=== PATIENT | male | born 2000 | race Hispanic/Latino ===

== ENCOUNTER 2020-11-11 11:41 | Emergency (ER) | payer SELFPAY ==
[2020-11-11 12:03] VITALS: BP 114/59
[2020-11-11] MEDS ORDERED: DIPHtheria,PERTUSSIS(ACELL),TETANUS VACCINE/PF 0.5 ML VIAL IM ONE (12:08)
[2020-11-11] MEDS ORDERED: RABIES IMMUNE GLOBULIN P/F 300 UNIT/ML INJ 5 ML IM ONE (12:11)
[2020-11-11] MEDS ORDERED: RABIES VACCINE, HUMAN DIPLOID/PF 2.5 UNIT/ML VIAL IM ONE (12:11)
--- NOTE | 2020-11-11 12:12 | Emergency Department Report ---
ED General Adult HPI - General Chief complaint: Animal Bite Stated complaint: DOG BITE Time Seen by Provider: 11/11/20 12:08 Source: patient Mode of arrival: Ambulatory Limitations: No Limitations - History of Present Illness Initial comments: 20-year-old -Iranian male patient presents for tetanus and rabies vaccinations today. Patient states he was bitten by dog 2 days ago and was seen at an urgent care at that time. He states the urgent care placed him on Augmentin which he has not began taking yet and did not give him a rabies vaccination or update his tetanus vaccine. He states some pain and swelling to the right index finger post dog bite. Patient reports dog bites to the forearms bilaterally and right lower leg. He denies any fever/chills/sweats, nausea/vomiting, diarrhea, dizziness, or headaches. - Related Data Previous Rx's Medication Instructions Recorded Last Taken Type Clindamycin [Clindamycin CAP] 300 mg PO Q6H 10 Days #40 capsule 11/11/20 Unknown Rx Ibuprofen [Motrin 800 MG tab] 800 mg PO Q8HR PRN #20 tablet 11/11/20 Unknown Rx Allergies Allergy/AdvReac Type Severity Reaction Status Date / Time No Known Allergies Allergy Unverified 11/11/20 12:00 ED Review of Systems ROS: Stated complaint: DOG BITE Other details as noted in HPI Constitutional: denies: chills, diaphoresis, fever, malaise, weakness Respiratory: denies: shortness of breath Cardiovascular: denies: chest pain Gastrointestinal: denies: nausea, vomiting Musculoskeletal: joint swelling Skin: change in color Hematological/Lymphatic: denies: swollen glands ED Past Medical Hx - Past Medical History Previous Medical History?: No - Surgical History Past Surgical History?: No - Medications Home Medications: Home Medications Medication Instructions Recorded Confirmed Last Taken Type Clindamycin [Clindamycin CAP] 300 mg PO Q6H 10 Days #40 capsule 11/11/20 Unknown Rx Ibuprofen [Motrin 800 MG tab] 800 mg PO Q8HR PRN #20 tablet 11/11/20 Unknown Rx ED Physical Exam - General Limitations: No Limitations General appearance: alert, in no apparent distress - Head Head exam: Present: atraumatic, normocephalic - Eye Eye exam: Present: normal appearance. Absent: scleral icterus, conjunctival injection - Respiratory Respiratory exam: Absent: respiratory distress - Cardiovascular Cardiovascular Exam: Present: regular rate - Extremities Exam Extremities exam: Present: full ROM - Back Exam Back exam: Present: full ROM - Neurological Exam Neurological exam: Present: alert, oriented X3 - Psychiatric Psychiatric exam: Present: normal affect, normal mood - Skin Skin exam: Present: warm, dry, intact, erythema (Noted to distal right index finger without active purulent drainage; healing wound noted), abrasion (Bilateral forearms, right lower leg-no erythema or purulent drainage noted), other ED Course Vital Signs 11/11/20 12:01 Temperature 98.2 F Pulse Rate 81 Respiratory 16 Rate Blood Pressure 114/59 O2 Sat by Pulse 95 Oximetry ED Medical Decision Making - Radiology Data Radiology results: report reviewed 20-year-old -Iranian male patient presents for tetanus and rabies vaccinations today. Patient states he was bitten by dog 2 days ago and was seen at an urgent care at that time. He states the urgent care placed him on Augmentin which he has not began taking yet and did not give him a rabies vaccination or update his tetanus vaccine. He states some pain and swelling to the right index finger post dog bite. Patient reports dog bites to the forearms bilaterally and right lower leg. He denies any fever/chills/sweats, nausea/vomiting, diarrhea, dizziness, or headaches. First rabies vaccine shot given here in ED today along with a Boostrix update. Vitals are normal patient to start his Augmentin today, he states he has filled the prescription. Discussed wound care and signs and symptoms of worsening infection in detail with patient who verbalized understanding. Recommend follow-up primary care in 3 days. Critical care attestation.: If time is entered above; I have spent that time in minutes in the direct care of this critically ill patient, excluding procedure time. ED Disposition Clinical Impression: Dog bite, Infected dog bite of finger Disposition: DC-01 TO HOME OR SELFCARE Is pt being admited?: No Condition: Stable Instructions: Animal Bite, Adult, Fingertip Infection Prescriptions: Clindamycin [Clindamycin CAP] 300 mg PO Q6H 10 Days #40 capsule Ibuprofen [Motrin 800 MG tab] 800 mg PO Q8HR PRN #20 tablet PRN Reason: pain Referrals: [facility] [Provider Group] - 3-5 Days
--- NOTE | 2020-11-11 13:39 | Emergency Department Report ---
ED Animal Bite HPI - General Chief Complaint: Animal Bite Stated Complaint: DOG BITE Time Seen by Provider: 11/11/20 12:08 Source: patient Mode of arrival: Ambulatory Limitations: No Limitations - History of Present Illness Initial Comments: This is not my patient patient seen by Amaya Simmons - Related Data Previous Rx's Medication Instructions Recorded Last Taken Type Clindamycin [Clindamycin CAP] 300 mg PO Q6H 10 Days #40 capsule 11/11/20 Unknown Rx Ibuprofen [Motrin 800 MG tab] 800 mg PO Q8HR PRN #20 tablet 11/11/20 Unknown Rx Allergies Allergy/AdvReac Type Severity Reaction Status Date / Time No Known Allergies Allergy Unverified 11/11/20 12:00 ED Review of Systems ROS: Stated complaint: DOG BITE Other details as noted in HPI ED Past Medical Hx - Past Medical History Previous Medical History?: No - Surgical History Past Surgical History?: No - Medications Home Medications: Home Medications Medication Instructions Recorded Confirmed Last Taken Type Clindamycin [Clindamycin CAP] 300 mg PO Q6H 10 Days #40 capsule 11/11/20 Unknown Rx Ibuprofen [Motrin 800 MG tab] 800 mg PO Q8HR PRN #20 tablet 11/11/20 Unknown Rx ED Physical Exam - General Limitations: No Limitations ED Course Vital Signs 11/11/20 12:01 Temperature 98.2 F Pulse Rate 81 Respiratory 16 Rate Blood Pressure 114/59 O2 Sat by Pulse 95 Oximetry Critical care attestation.: If time is entered above; I have spent that time in minutes in the direct care of this critically ill patient, excluding procedure time. ED Disposition Clinical Impression: Dog bite, Infected dog bite of finger Disposition: DC-01 TO HOME OR SELFCARE Is pt being admited?: No Does the pt Need Aspirin: No Condition: Stable Instructions: Animal Bite, Adult, Fingertip Infection Prescriptions: Clindamycin [Clindamycin CAP] 300 mg PO Q6H 10 Days #40 capsule Ibuprofen [Motrin 800 MG tab] 800 mg PO Q8HR PRN #20 tablet PRN Reason: pain Referrals: [facility] [Provider Group] - 3-5 Days
== END 2020-11-11 13:30 | disposition home or self-care (01) ==
LOC: ED 11:41
DX: S61.250A Open bite of right index finger without damage to nail, initial encounter (principal); Z79.899 Other long term (current) drug therapy; W54.0XXA Bitten by dog, initial encounter; Y93.89 Activity, other specified; Y92.89 Other specified places as the place of occurrence of the external cause; Y99.8 Other external cause status
CPT/HCPCS: 90375; 90471; 90675; 90715; 96372; 99282